=== PATIENT | female | born 1965 | race Caucasian/White ===

== ENCOUNTER → 2018-07-25 | Outpatient (CLI) | payer BC ==
[~2018-07-25] MED LIST: FLEXERIL PO; IBUPROFEN 800800 M1 PO
== END ==
LOC: M.RAD 09:57
DX: Z12.31 Encounter for screening mammogram for malignant neoplasm of breast (principal)

== ENCOUNTER → 2020-01-18 | Outpatient (CLI) | payer BC | LOC: M.RAD 08:30 | DX: Z12.31 Encounter for screening mammogram for malignant neoplasm of breast (principal) ==

== ENCOUNTER → 2020-01-24 | Outpatient (CLI) | payer BC | LOC: M.RAD 01-23 14:48 | DX: N60.01 Solitary cyst of right breast (principal); N63.10 Unspecified lump in the right breast, unspecified quadrant ==

== ENCOUNTER 2021-04-16 08:37 | Emergency (ER) | payer BC ==
[~2021-04-16] VITALS: Ht 160 cm; Wt 68.0 kg
[2021-04-16] MEDS ORDERED: KEFLEX750 MG PO (11:18)
[2021-04-16 11:31] VITALS: BP 124/72
== END 2021-04-16 11:32 | disposition home or self-care (01) ==
LOC: M.ERS 08:37
DX: L03.012 Cellulitis of left finger (principal)

== ENCOUNTER → 2021-08-08 | Outpatient (CLI) | payer BC ==
[~2021-08-08] MED LIST changes: +KEFLEX750 MG PO
== END ==
LOC: M.RAD 09:54
PROVIDERS: ATTEND Family Medicine
DX: Z12.31 Encounter for screening mammogram for malignant neoplasm of breast (principal)

== ENCOUNTER → 2021-09-01 | Outpatient (CLI) | payer BC | LOC: M.ULTRA 15:00 | PROVIDERS: ATTEND Family Medicine | DX: N63.0 Unspecified lump in unspecified breast (principal) ==